=== PATIENT | female | born 1965 ===

== ENCOUNTER 2018-06-02 09:51 | Emergency (ER) | payer OTHER ==
[~2018-06-02] VITALS: Ht 160 cm; Wt 136.4 kg
[2018-06-02 10:12] VITALS: BP 146/98
== END 2018-06-02 12:30 | disposition left against medical advice (07) ==
LOC: EMS 09:51
DX: G47.00 Insomnia, unspecified (principal); Z53.21 Procedure and treatment not carried out due to patient leaving prior to being seen by health care provider